=== PATIENT | male | born 1970 | race Caucasian/White ===

== ENCOUNTER 2020-10-27 12:26 | Emergency (ER) | payer OTHER, SELFPAY ==
--- NOTE | 2020-10-27 13:19 | ED.EAR ---
HPI - Ear Problem General Chief complaint: Ear Stated complaint: R EARACHE Source: patient and RN notes reviewed Limitations: no limitations History of Present Illness HPI Narrative: The obese patient, occasional drinker/non-smoker and prediabetic, presents with ear discomfort. Patient states he has about a day long history of right ear discomfort that is mild, worse with palpation. No discharge, tooth ache, mastoid tenderness fever, cough, loss of taste/smell, S OB, chest pain. Related Data Home Medications Medication Instructions Recorded Confirmed azelastine 1 spray INTRANASAL Q12H 08/19/19 10/27/20 sertraline 50 mg PO DAILY 10/27/20 10/27/20 Allergies Allergy/AdvReac Type Severity Reaction Status Date / Time No Known Allergies Allergy Verified 10/27/20 12:41 Review of Systems Review of Systems: Narrative: General/Constitutional: No weight loss,fever Eyes: N0: Redness,discharge Ears/Nose/Throat: No: Epistaxis,ear discharge Respiratory: Denies: Hemoptysis Gastrointestinal: No Vomiting, Bleeding-rectal Skin: No Lumps, eruption Neurologic: No Focal Weakness,Sz Hematologic: Denies: Petechiae/Purpura Psychiatric: No: Suicida ideationl All Other Systems: Reviewed and Negative [facility] Past Medical History Medical History (Updated 10/27/20 @ 13:25 by Kory Card MD) Attention deficit hyperactivity disorder Essential hypertension Mixed hyperlipidemia Obesity Prediabetes Family History Family History (Reviewed 10/15/20 @ 14:58 by Emma Spears [facility]) Grandparent Diabetes mellitus Other Family history of elevated blood lipids No family history of cardiovascular disease Social History Social History (Reviewed 10/15/20 @ 14:58 by Emma Spears [facility]) Smoking status: Never smoker Alcohol intake: current Comments At time of signature, agree with nursing past medical, surgical, social and family history. There is no relevant family history pertinent to the presenting complaint Exam Narrative: Exam Narrative: General Appearance: Well appearing, No distress EYE: PERRLA, Conjunctiva clear Ears: External ear normal, right EAC inflamed and narrowed with scant wax obscuring TM, left TM normal Nose: Normal nose Mouth/Throat: Normal appearing, Normal lips, Supple Respiratory: Airway patent, No respiratory distress Musculoskeletal: Full strength Skin: Warm, Dry Neurological: A&O x3, CN II-X intact Psychiatric: Normal mood, Normal affect Discharge Plan Discharge Clinical Impression: Otitis externa Qualifiers: Otitis externa type: unspecified type Chronicity: acute Laterality: right Qualified Code(s): H60.501 - Unspecified acute noninfective otitis externa, right ear Patient Disposition: Home, Self-Care Condition: Stable Instructions: Antibiotic Form, Otitis Externa (ED) Prescriptions: New ujvexgop-xwsbuivhg-OO 3.5-10,000-1 mg/mL-unit/mL-% solution 4 drp RIGHT EAR Q8H Qty: 10 RF: 0 amoxicillin 875 mg tablet 875 mg PO Q12H Qty: 14 RF: 0 No Action azelastine 137 mcg (0.1 %) Aerosol,[place] 1 spray INTRANASAL Q12H RF: 0 sertraline 50 mg tablet 50 mg PO DAILY RF: 0 atorvastatin 10 mg tablet See Rx Instructions .ROUTE .COMPLEX Qty: 90 RF: 0 lisinopril 10 mg tablet See Rx Instructions .ROUTE .COMPLEX Qty: 90 RF: 0 Follow-up/Referrals: UNKNOWN,DOCTOR [Primary Care Provider] -
== END 2020-10-27 13:35 | disposition home or self-care (01) ==
PROVIDERS: Emergency Provider Emergency Medicine
DX: H60.501 Unspecified acute noninfective otitis externa, right ear (principal); R73.03 Prediabetes; I10 Essential (primary) hypertension; E78.2 Mixed hyperlipidemia; E66.9 Obesity, unspecified; Z68.42 Body mass index [BMI] 45.0-49.9, adult
CPT/HCPCS: 99213; G0463

== ENCOUNTER 2020-11-03 14:19 | Emergency (ER) | payer OTHER, SELFPAY ==
--- NOTE | 2020-11-03 14:23 | ED.EAR ---
HPI - Ear Problem General Chief complaint: Ear Stated complaint: ear pressure Time Seen by Provider: 11/03/20 14:30 Source: patient Mode of arrival: ambulatory Limitations: no limitations History of Present Illness HPI Narrative: Santi Blankenship is a 50 yo male with a PMH of HTN, high cholesterol who coes meme to urgent care with pain and stating that he feels like he has a balloon in his ear. Pain at about 8 out of 10. States that he has taken the antibiotics as prescribed from the prior visit and his ear is feeling better but in the last 2 to 3 days it pain is gotten much worse. No fever, no nausea vomiting, no rhinorrhea Related Data Home Medications Medication Instructions Recorded Confirmed azelastine 1 spray INTRANASAL Q12H 08/19/19 10/27/20 sertraline 50 mg PO DAILY 10/27/20 10/27/20 Allergies Allergy/AdvReac Type Severity Reaction Status Date / Time No Known Allergies Allergy Verified 10/27/20 12:41 Review of Systems Review of Systems: Narrative: CONSTITUTIONAL: Denies fever, chills, sweats. EYES: Denies visual changes, redness, discharge. ENT: Denies rhinorrhea, congestion, sore throat, right otalgia. CARDIOVASCULAR: Denies chest pain, palpitations, edema. RESPIRATORY: Denies dyspnea, wheezing, cough GASTROINTESTINAL: Denies abdominal pain, nausea, vomiting, diarrhea. GENITOURINARY: Denies dysuria, hematuria, abnormal discharge SKIN: Denies rash or itching. NEUROLOGIC: Denies numbness, or focal weakness. PSYCHIATRIC: Denies anxiety or depression. PMFSH Past Medical History Medical History (Updated 11/03/20 @ 14:47 by Julieta Julian CNP) Attention deficit hyperactivity disorder Essential hypertension Mixed hyperlipidemia Obesity Prediabetes Family History Family History Grandparent Diabetes mellitus Other Family history of elevated blood lipids No family history of cardiovascular disease Social History Social History Smoking status: Never smoker Alcohol intake: current Comments At time of signature, I agree with nursing past medical, surgical, social and family history. There is no relevant family history pertinent to the presenting complaint. Exam Narrative: Exam Narrative: GENERAL: This is a well-nourished, well-developed patient, in moderate distress. HEAD: normocephalic, atraumatic. EYES: Sclera clear/white. Vision is grossly intact. EARS: External ears normal, auditory canals clear on L and erythem without drainage, swelling jhas decreased from prior visit; Thowever there is a wad of cotton lodged at the TM. Hearing grossly intact. NOSE: External nose normal without nasal discharge, nares without redness, no rhinorrhea. THROAT: Mucous membranes moist, NECK: Neck supple, CARDIOVASCULAR: Regular rate and rhythm without murmurs, gallops, or rubs. RESPIRATORY: Clear to auscultation. Breath sounds equal bilaterally. No wheezes, rales, or rhonchi. GASTROINTESTINAL: Abdomen soft, SKIN: warm, intact with no suspicious lesions or rash, good texture and turgor. NEURO: awake, alert, and oriented to person, place and time. There were no obvious focal neurologic abnormalities. Steady gait EXTREMITIES: Normal range of motion. BACK: Nontender without deformity Course Course Emergency Course: Patient is a 50-year-old male that was seen here on 328 and was given antibiotics and eardrops for a otitis externa; states his ear improved after couple days but in the last day or 2 is got much worse On exam there was cotton in his ear and patient states that he was trying to help clean his ear out Antibiotic changed to Cipro 500 twice daily and given Tylenol with codeine for pain as he has been using ibuprofen his blood pressure is quite high and he has a diagnosis of hypertension He is to follow-up with his primary care physician Vital Signs Vital signs: Vital Signs Temperature 96.
[2020-11-03 14:31] VITALS: BP 158/94; PULSE 65; RESP 16; TEMP 35.9; O2SAT 99
== END 2020-11-03 14:54 | disposition home or self-care (01) ==
PROVIDERS: Emergency Provider Nurse Practitioner; PCP Family Medicine
DX: H60.311 Diffuse otitis externa, right ear (principal); I10 Essential (primary) hypertension; E78.2 Mixed hyperlipidemia; R73.03 Prediabetes
CPT/HCPCS: 99213; G0463

== ENCOUNTER 2021-09-29 00:09 | Day surgery (SDC) | payer OTHER, SELFPAY ==
[2021-09-15 13:11] VITALS: BMI 42.7
[2021-09-29 08:23] VITALS: BP 153/92; PULSE 69; RESP 20; TEMP 36.1; O2SAT 97
[2021-09-29] MEDS: LACTATED RINGERS 1,000 ML 150 ML IV CONT (08:31)
--- NOTE | 2021-09-29 08:50 | WPDANESEPPF ---
Anes - Initial Pre Proc Eval Procedure: Operation Date: 09/29/21 09:30 Proposed Procedures p Screening Colonoscopy - Zen Peacock MD Date/Time: 09/29/21 08:50 Surgeon: Zen Peacock MD Pre Op Diagnosis: neoplasm screening Patient Data Age: 51 Gender: M Height: 1.75 m Weight: 136.3 kg Last Vital Signs Temp 97.0 F L 09/29/21 08:23 Pulse 69 09/29/21 08:23 Resp 20 09/29/21 08:23 BP 153/92 H 09/29/21 08:23 Pulse Ox 97 09/29/21 08:23 Allergies Allergy/AdvReac Type Severity Reaction Status Date / Time latex AdvReac Rash Verified 09/29/21 08:22 Home Medications Medication Instructions Recorded Confirmed Type azelastine 1 spray INTRANASAL Q12H 08/19/19 09/15/21 History hydrochlorothiazide 12.5 mg tablet See Rx Instructions .ROUTE 05/22/21 09/15/21 Rx .COMPLEX #90 tablet atorvastatin 10 mg tablet See Rx Instructions .ROUTE 05/26/21 09/15/21 Rx .COMPLEX #90 tablet lisinopril 30 mg tablet See Rx Instructions .ROUTE 06/16/21 09/15/21 Rx .COMPLEX #90 tablet sertraline 100 mg tablet 100 mg PO DAILY 08/18/21 09/15/21 History methylphenidate HCl 10 mg PO DAILY 09/15/21 09/15/21 History Patient hx anesthesia problems: none Family hx anesthesia problems: none Results Review: All pre-operative results and documents have been reviewed as part of the pre-operative evaluation. [facility] Past Medical History Medical History Attention deficit hyperactivity disorder Essential hypertension Mixed hyperlipidemia Obesity Prediabetes Family History Family History Grandparent Diabetes mellitus Other Family history of elevated blood lipids No family history of cardiovascular disease Social History Social History Smoking status: Never smoker Alcohol intake: current Drinks per week: 7 Living arrangements: with family Spiritual care concerns: No Anes - Eval Final PreProcedure Day of Procedure 09/29/21 08:50 Patient weight: morbidly obese Heart: regular rate and rhythm Lungs: clear to auscultation Airway: Mallampati scale class III Neurological: alert and oriented Last oral intake: >/= 8 hours ASA classification: III Emergent: no Anesthetic plan: proceed Anesthesia type and monitoring: general GIVS and standard monitoring Results Review: All pre-operative results and documents have been reviewed as part of the pre-operative evaluation. Informed Consent: The patient's anesthetic plan and its attendant risks and benefits were discussed with the patient/family/POA. Questions were solicited and answers provided to the satisfaction of the patient/family/POA.
--- NOTE | 2021-09-29 08:56 | PM.HPGS ---
History of Present Illness History of Present Illness Consent: Risks, benefits, and alternatives have been discussed and questions answered. Patient agrees to proceed with procedure. Chief complaint: neoplasm screening Narrative: Santi Blankenship is a 51 year old male here for first screening colonoscopy Review of Systems Constitutional: Constitutional: Denies headache(s) and Denies weakness Eyes: Eyes: Denies blurry vision ENT: Reports Normal hearing present, Denies headache(s) and Denies neck pain Cardiovascular: Cardiovascular: Denies chest pain and Denies dyspnea Respiratory: Respiratory: Denies dyspnea Gastrointestinal: Gastrointestinal: Reports no additional gastrointestinal complaints Genitourinary: Genitourinary: Denies dysuria Musculoskeletal: Musculoskeletal: Denies neck pain Integumentary/Breasts: Skin/Breast: Denies dry skin Neurologic: Reports Normal hearing present, Denies headache(s) and Denies weakness Psychiatric: Psychiatric: Denies anxiety Endocrine: Endocrine: Denies change in body appearance Hematologic/Lymphatic: Hematologic/Lymphatic: Denies easy bleeding Allergic/Immunologic: Allergic/Immunologic: Denies urticaria [facility] Past Medical History Medical History Attention deficit hyperactivity disorder Essential hypertension Mixed hyperlipidemia Obesity Prediabetes Family History Family History Grandparent Diabetes mellitus Other Family history of elevated blood lipids No family history of cardiovascular disease Social History Social History Smoking status: Never smoker Alcohol intake: current Drinks per week: 7 Living arrangements: with family Spiritual care concerns: No Meds Home Medications and Allergies Home Medications Medication Instructions Recorded Confirmed Type azelastine 1 spray INTRANASAL Q12H 08/19/19 09/15/21 History hydrochlorothiazide 12.5 mg tablet See Rx Instructions .ROUTE 05/22/21 09/15/21 Rx .COMPLEX #90 tablet atorvastatin 10 mg tablet See Rx Instructions .ROUTE 05/26/21 09/15/21 Rx .COMPLEX #90 tablet lisinopril 30 mg tablet See Rx Instructions .ROUTE 06/16/21 09/15/21 Rx .COMPLEX #90 tablet sertraline 100 mg tablet 100 mg PO DAILY 08/18/21 09/15/21 History methylphenidate HCl 10 mg PO DAILY 09/15/21 09/15/21 History Allergies Allergy/AdvReac Type Severity Reaction Status Date / Time latex AdvReac Rash Verified 09/29/21 08:22 Vital Signs Vital Signs - 24 hr 09/29/21 08:23 Temperature 97.0 F L Pulse Rate 69 Respiratory Rate 20 Blood Pressure 153/92 H Pulse Oximetry 97 Exam Const: General: comfortable and no acute distress HENMT: General nose exam: Normal nares present Eyes: General: appearance normal, both eyes and all related structures Neck: Neck: no JVD Resp: Auscultation: clear to auscultation bilaterally Cardio: Rate: regular rate Rhythm: regular rhythm GI: Inspection: non-distended GI Palp: Yes Soft to palpation Skin: General skin exam: normal color Neuro: General: gait normal Speech: normal speech Extrem: General: normal to inspection Psych: Mental Status: mental status grossly normal Assessment and Plan Assessment and plan (1) Screening for colon cancer: Code(s): Z12.11 - Encounter for screening for malignant neoplasm of colon Status: Acute Assessment and Plan: colonoscopy
[2021-09-29 09:20] VITALS: BP 132/83; PULSE 58; RESP 17; O2SAT 97
[2021-09-29 09:30] VITALS: BP 120/80; PULSE 62; RESP 21; O2SAT 100
[2021-09-29 09:40] VITALS: BP 160/108; PULSE 62; RESP 20; O2SAT 100
== END 2021-09-29 09:49 | disposition home or self-care (01) ==
PROVIDERS: PCP Family Medicine; Visit Provider Internal Medicine Gastroenterology
PROC: 0DJD8ZZ Inspection of Lower Intestinal Tract, Via Natural or Artificial Opening Endoscopic (ICD-10-PCS; CPT 45378; principal; 2021-09-29 09:30)
DX: Z12.11 Encounter for screening for malignant neoplasm of colon (principal); K63.5 Polyp of colon; K57.30 Diverticulosis of large intestine without perforation or abscess without bleeding; K64.8 Other hemorrhoids; D12.3 Benign neoplasm of transverse colon; F90.9 Attention-deficit hyperactivity disorder, unspecified type; I10 Essential (primary) hypertension; E78.2 Mixed hyperlipidemia; R73.03 Prediabetes; E66.01 Morbid (severe) obesity due to excess calories; Z68.41 Body mass index [BMI] 40.0-44.9, adult
CPT/HCPCS: 45385; 45380; 88305; J2704; J7120

== ENCOUNTER 2022-01-06 16:21 | Outpatient (CLI) | payer OTHER, SELFPAY ==
--- NOTE | ~2022-01-06 | XR_ITS ---
XR hip RT 2V w AP pelvis DATE: 01/06/2022 16:39 INDICATION: Right hip pain for one year. No known injury. TECHNIQUE: AP pelvis. AP and lateral views of right hip COMPARISON: None FINDINGS: The pubic symphysis and sacroiliac joints are intact. No pelvic fracture or bone destructio n. There is severe bilateral hip osteophytes, much more prominent on the right, with virtual obliteratio n of superior joint space, with very prominent particular spurring of acetabulum and femoral head, pa tchy sclerotic and cystic changes of the acetabulum and femoral head. There is suggestion of avascula r necrosis of the right femoral head. IMPRESSION: Severe bilateral hip osteophytes, much more pronounced on the right, with suggestion of a vascular necrosis of right femoral head Reviewed, dictated and finalized at location A. 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
== END 2022-01-06 16:22 | disposition home or self-care (01) ==
LOC: ANHIMG 16:25
PROVIDERS: PCP Family Medicine; Visit Provider Family Medicine
DX: M25.752 Osteophyte, left hip (principal); M25.751 Osteophyte, right hip
CPT/HCPCS: 73502

== ENCOUNTER → 2022-01-24 09:01 | Outpatient (CLI) | payer OTHER, SELFPAY ==
--- NOTE | ~2022-01-24 | MR_ITS ---
EXAMINATION: MR hip RT wo con DATE: 01/24/2022 10:26 INDICATION: Avascular necrosis of the right hip. Abnormal x-ray and right hip pain. TECHNIQUE: Magnetic resonance imaging (MRI) of the right hip was performed without intravenous contr ast. Sequences included full-field axial PD-weighted FS FSE and T1-weighted FSE, coronal of the pelvi s with PD-weighted FS FSE, T2-weighted FSE and T1-weighted FSE, small field of view of the right hip with axial PD-weighted FS FSE, sagittal PD-weighted FS FSE, coronal PD-weighted FS FSE and coronal T2 weighted FSE. Additional radial T1-weighted FGR oriented orthogonal to the acetabular rim were obt ained for evaluation of the labrum. COMPARISON: Radiograph dated FINDINGS: Bones/labrum/cartilage: Alignment is normal. No fracture or pathologic marrow replacing process. Advanced osteoarthritis of the right hip with subarticular cystic changes at the superior aspect of the right femoral head and a cetabulum. There are also prominent marginal osteophytes about both the right acetabulum and femoral head. This accounts for the next lytic and sclerotic appearance at the right femoral head which raise d the suspicion for avascular necrosis which is not identified left at either the left or right hip. Diffuse degenerative tearing of the right acetabular labrum. Similar but less advanced moderate to se rigoberto osteoarthritis and diffuse degenerative tearing of the left acetabular labrum identified at the left hip. Mild lower lumbar spondylosis. Fluid: Relatively likely reactive very small bilateral hip joint effusions. Soft tissues: No asymmetric muscular atrophy or abnormal muscle signal in the pelvis and visualized proximal thighs . The iliopsoas, gluteal and right proximal hamstring tendons are normal. Mild tendinopathy and very small partial tear at the left ischial tuberosity conjoined origin of the left biceps femoris and latha itendinosus tendon. Limited evaluation of visceral organs of the pelvis is unremarkable. No patholog ically enlarged pelvic/inguinal lymphadenopathy. IMPRESSION: 1. Advanced right and moderate to severe left hip osteoarthritis. Associated hypertrophic and subarti cular cystic changes at the right hip and acetabulum account for the appearance on the prior plain ra diographs with no evident avascular necrosis by MRI. 2. Mild tendinopathy and very small partial tear at the left ischial tuberosity origin of the conjoin ed left biceps femoris and semitendinosus tendons. Reviewed, dictated and finalized at location A. IMPRESSION: 1. Advanced right and moderate to severe left hip osteoarthritis. Associated hy pertrophic and subarticular cystic changes at the right hip and acetabulum acco unt for the appearance on the prior plain radiographs with no evident avascular necrosis by MRI. 2. Mild tendinopathy and very small partial tear at the left ischial tuberosity origin of the conjoined left biceps femoris and semitendinosus tendons.
== END ==
PROVIDERS: PCP Family Medicine; Visit Provider Family Medicine
DX: M87.851 Other osteonecrosis, right femur (principal); M16.0 Bilateral primary osteoarthritis of hip
CPT/HCPCS: 73721

== ENCOUNTER 2022-07-18 11:41 | Emergency (ER) | payer OTHER, SELFPAY ==
--- NOTE | 2022-07-18 11:53 | ED.URI ---
HPI - URI/Sore Throat General Chief Complaint: Upper Respiratory Infection Stated Complaint: FEVER/BODY ACHES Time Seen by Provider: 07/18/22 11:48 Source: patient and RN notes reviewed History of Present Illness HPI Narrative: Patient is a 51-year-old male who presents to urgent care with complaints of fevers at night, fatigue and body aches. Patient states he was tested in self for COVID twice which was negative. Patient states this started on Wednesday. Reports of an upper respiratory illness a couple weeks ago and those symptoms have resolved. Patient denies any shortness of breath, chest pain, cough. States that he has been trying to drink a lot of water and has recently noticed his urine has been dark and he has had urinary frequency. Patient denies any abdominal discomfort. Denies any nausea or vomiting. No other acute complaints. Patient is diaphoretic. No acute distress noted. Patient aware of the plan of care. Some parts of this dictation were generated by voice recognition software and may contain typographical and/or grammatical inaccuracies. Related Data Home Medications Medication Instructions Recorded Confirmed azelastine 137 mcg (0.1 %) nasal 1 spray intranasal Q12H 08/19/19 07/18/22 spray aerosol methylphenidate HCl 10 mg tablet 10 mg PO DAILY 09/15/21 07/18/22 sertraline 50 mg tablet 50 mg PO DAILY 07/14/22 07/18/22 Allergies Allergy/AdvReac Type Severity Reaction Status Date / Time latex AdvReac Rash Verified 07/18/22 11:49 Review of Systems Review of Systems: CONSTITUTIONAL: Reports of fever, chills, sweats EYES: Denies visual changes, redness, or discharge. ENT: Denies rhinorrhea, congestion, sore throat, or otalgia. CARDIOVASCULAR: Denies chest pain, palpitations, or edema. RESPIRATORY: Denies cough or dyspnea. GASTROINTESTINAL: Denies abdominal pain, nausea, vomiting, or diarrhea. GENITOURINARY: Denies dysuria or hematuria. Reports of dark urine and urinary frequency SKIN: Denies rash or itching. MUSCULOSKELETAL: Denies back pain, joint pain, or myalgia. NEUROLOGIC: Denies headache, numbness, or weakness. All other systems reviewed are negative, except as documented in HPI. [facility] Past Medical History Medical History (Updated 07/18/22 @ 12:24 by DEJAH Johnson) Attention deficit hyperactivity disorder Essential hypertension Mixed hyperlipidemia Obesity Prediabetes Family History Family History Grandparent Diabetes mellitus Other Family history of elevated blood lipids No family history of cardiovascular disease Social History Social History Smoking status: Never smoker Alcohol intake: current Drinks per week: 7 Lack of Transportation: No Lack of Food: Never True Current Housing: I Have Housing Concerned About Future Housing: No Difficulty Paying Gas/Electric Bills: No Difficulty Paying for Meds: No Currently Unemployed: No Education: Bachelor's Degree Difficulty w/ Childcare or Family Care: No Spiritual care concerns: No Comments At the time of my signature, I reviewed and agree with the nursing past medical, surgical, social, and family history. There is no relevant family history pertinent to the patient complaint. Exam Narrative: GENERAL: This is a well-nourished, well-developed patient, in no apparent distress. HEAD: normocephalic, atraumatic. EYES: PERRL. Sclera clear/white. Vision is grossly intact. EARS: External ears normal, auditory canals clear and without drainage, TMs normal without perforation. Hearing grossly intact. NOSE: External nose normal with no obvious nasal discharge, nares without redness, no rhinorrhea. THROAT: Mucous membranes moist, posterior pharynx clear. Moderate postnasal drainage NECK: Neck supple, non-tender without lymphadenopathy, masses or thyromegaly. CARDIOVASCULAR: Regular rate and rh
[2022-07-18 11:54] VITALS: BP 159/90; PULSE 76; RESP 16; TEMP 35.8; O2SAT 97
[2022-07-18 12:15] LABS: Glucose Point of Care 119 mg/dl (65-105)
--- NOTE | 2022-07-18 12:17 | ECG_ITS ---
Measurements Intervals [place] Rate: 76 P: 71 LA: 160 QRS: 50 QRSD: 96 T: 28 QT: 295 QTc: 333 Interpretive Statements SINUS RHYTHM NONSPECIFIC T-WAVE ABNORMALITY NO PREVIOUS ECG AVAILABLE FOR COMPARISON Electronically Signed On 07-18-2022 16:57:28 [employer] by Clarice Townsend M.D.
== END 2022-07-18 12:23 | disposition short-term general hospital (02) ==
PROVIDERS: Emergency Provider Nurse Practitioner Family; PCP Family Medicine
DX: R61 Generalized hyperhidrosis (principal); R31.9 Hematuria, unspecified; R50.9 Fever, unspecified; I10 Essential (primary) hypertension; E78.2 Mixed hyperlipidemia; R73.03 Prediabetes; E66.9 Obesity, unspecified; Z68.42 Body mass index [BMI] 45.0-49.9, adult; F90.9 Attention-deficit hyperactivity disorder, unspecified type
CPT/HCPCS: 81003; 82948; 93005; 99213; G0463

== ENCOUNTER 2022-07-18 12:45 | Emergency (ER) | payer OTHER, SELFPAY ==
--- NOTE | ~2022-07-18 | XR_ITS ---
EXAMINATION: XR chest 2V DATE: 07/18/2022 15:50 INDICATION: Fever, cough and diaphoresis TECHNIQUE: PA and lateral views of the chest were obtained. COMPARISON: CT abdomen pelvis dated 07/18/2022 FINDINGS: The lungs are clear with no focal airspace opacities, pulmonary edema, pleural effusion or pneumothor ax. The cardiomediastinal silhouette is normal. Old healed left clavicle fracture. There are bridging osteophytes at multiple levels in the spine, consistent with diffuse idiopathic skeletal hyperostosi s (DISH). IMPRESSION: 1. No acute cardiopulmonary disease. Reviewed, dictated and finalized at location A. ICE CASE MANAGER
--- NOTE | ~2022-07-18 | CT_ITS ---
EXAMINATION: CT abdomen pelvis wo con DATE: 07/18/2022 14:55 INDICATION: Right flank pain and hematuria TECHNIQUE: Computed tomography (CT) of the abdomen and pelvis was performed without intravenous contr ast. Automated exposure control and iterative reconstruction technique were employed. The dose-length product was 1218.60 mGy-cm. COMPARISON: None FINDINGS: Lung bases are clear. Heart size is normal. No pericardial or pleural effusion. Liver, gallbladder, p ancreas, spleen and bilateral adrenal glands are normal. Kidneys and ureters are normal with no uroli thiasis, hydroureteronephrosis or perinephric/ureteral stranding. Bowels including the appendix are n ormal. No free intraperitoneal gas or fluid. The lungs are clear. The cardiomediastinal silhouette i s within normal limits, accounting for portable AP technique. There are no large pleural effusions. There is no pneumothorax suspected. The bones and soft tissues are unremarkable. Advanced right and moderate to severe left hip osteoarthritis. IMPRESSION: 1. No urolithiasis. No acute intra-abdominal/pelvic process. Reviewed, dictated and finalized at location A. ECT ADMINISTRATOR
[2022-07-18 12:46] VITALS: BP 170/85; PULSE 86; RESP 18; TEMP 36.2; O2SAT 96
--- NOTE | 2022-07-18 14:41 | ED.GENADULT ---
HPI - General Adult General Chief complaint: Urogenital-Male Stated complaint: blood in urine Time Seen by Provider: 07/18/22 14:30 History of Present Illness HPI narrative: Patient is a 51 year old male here for evaluation of R flank pain x 3 days. Patient reports the pain is intermittent and stabbing in nature. Currently pain-free at time of my evaluation. Associated with diaphoresis and chills. Did not take his temperature. He does note that he had some episodes of urinary frequency. no history of kidney stones. He was sent here from urgent care for further evaluation and management. UA showed blood but no signs of infection. Related Data Home Medications Medication Instructions Recorded Confirmed azelastine 137 mcg (0.1 %) nasal 1 spray intranasal Q12H 08/19/19 07/18/22 spray aerosol methylphenidate HCl 10 mg tablet 10 mg PO DAILY 09/15/21 07/18/22 sertraline 50 mg tablet 50 mg PO DAILY 07/14/22 07/18/22 Allergies Allergy/AdvReac Type Severity Reaction Status Date / Time latex AdvReac Rash Verified 07/18/22 12:50 Review of Systems Review of Systems: Gen.: Reports chills. Eyes: Denies eye pain or visual change ENT: Denies congestion Respiratory: Denies shortness of breath or cough CV: Denies chest pain or palpitations GI: Denies abdominal pain nausea, emesis or diarrhea reports urinary frequency. Denies burning, urgency, hematuria Musculoskeletal: Reports right flank pain. Neuro: Denies numbness, tingling, weakness or focal weakness Skin: Denies rash Except as documented, all other systems reviewed and negative [facility] Past Medical History Medical History Attention deficit hyperactivity disorder Essential hypertension Mixed hyperlipidemia Obesity Prediabetes Family History Family History Grandparent Diabetes mellitus Other Family history of elevated blood lipids No family history of cardiovascular disease Social History Social History Smoking status: Never smoker Alcohol intake: current Drinks per week: 7 Lack of Transportation: No Lack of Food: Never True Current Housing: I Have Housing Concerned About Future Housing: No Difficulty Paying Gas/Electric Bills: No Difficulty Paying for Meds: No Currently Unemployed: No Education: Bachelor's Degree Difficulty w/ Childcare or Family Care: No Spiritual care concerns: No Exam Narrative: APPEARANCE: Well appearing, no pain in distress, well-nourished. Head: Normocephalic and atraumatic. EYES: PERRLA/EOMI, conjunctivae clear NOSE: No nasal drainage EARS: External ear normal in appearance THROAT: Oropharynx is clear. Mucous membranes are moist. NECK: Supple. No adenopathy, no masses. RESPIRATORY: Airway patent, respirations nonlabored. Clear to auscultation bilaterally, no rales, rhonchi, wheezing. CARDIOVASCULAR: Regular rate and rhythm without murmurs, rubs, or gallops. ABDOMINAL: Normoactive bowel sounds. Soft, nontender, nondistended. No rebound tenderness or guarding. MUSCULOSKELETAL: Extremities are warm and well-perfused. Moves all extremities well. No edema. NEURO: Normal speech. No focal neurologic deficits. SKIN: Skin is warm and dry. No rashes. PSYCHIATRIC: Normal affect/mood. Course Vital Signs Vital signs: Vital Signs Temperature 97.1 F L 07/18/22 12:46 Pulse Rate 86 07/18/22 12:46 Respiratory Rate 18 07/18/22 12:46 Blood Pressure 170/85 H 07/18/22 12:46 Pulse Oximetry 96 07/18/22 12:46 Oxygen Delivery Room Air 07/18/22 12:46 Temperature 97.1 F L 07/18/22 12:46 Pulse Rate 72 07/18/22 17:07 Respiratory Rate 16 07/18/22 17:07 Blood Pressure 132/96 H 07/18/22 17:07 Pulse Oximetry 97 07/18/22 17:07 Oxygen Delivery Room Air 07/18/22 12:46 Medical Decision Making MDM Narrativ
[2022-07-18 14:57] VITALS: BP 165/78; RESP 18; O2SAT 99
[2022-07-18 15:12] LABS: Basophils Absolute Auto 0.1 K/mm3 (0.0-0.1); Basophils Percent Auto 0.6 % (0.2-1.2); Eosinophils Absolute Auto 0.1 K/mm3 (0-0.3); Eosinophils Percent Auto 1.4 % (0-4.4); Hematocrit 44.6 % (42.0-52.0); Hemoglobin 15.2 g/dL (14.0-18.0); Immature Granulocyte Absolute 0.02 K/mm3 (0.00-0.031); Immature Granulocyte Percent A 0.3 % (0-0.5); Lymphocytes Absolute Auto 1.55 K/mm3 (0.9-3.2); Lymphocytes Percent Auto 19.6 % (18.3-44.2); Mean Corpuscular HGB Conc 34.1 g/dl (32-36); Mean Corpuscular Hemoglobin 31.5 pg (26-34); Mean Corpuscular Volume 92.5 fl (80-100); Mean Platelet Volume 9.9 fl (7.4-10.4); Monocytes Absolute Auto 0.8 K/mm3 (0.1-0.6); Monocytes Percent Auto 10.5 % (2.6-8.5); Neutrophils Absolute Auto 5.4 K/mm3 (1.3-6.7); Neutrophils Percent Auto 67.6 % (45.5-73.1); Platelet Count Result 302 k/mm3 (150-375); Red Blood Count 4.82 M/mm3 (4.6-6.20); Red Cell Distribution Width 12.6 % (11.5-14.5); White Blood Count 7.9 K/mm3 (4.5-10.0)
[2022-07-18 15:25] LABS: Alanine Aminotransferase 36 U/L (6-50); Albumin Level 4.3 g/dL (3.5-5.1); Alkaline Phosphatase 95 U/L (38-126); Anion Gap 5 mmol/L (8-16); Aspartate Amino Transferase 34 U/L (17-59); Bilirubin,Total 0.6 mg/dL (0.2-1.3); Blood Urea Nitrogen 24 mg/dL (9-20); Calcium 9.1 mg/dL (8.4-10.2); Carbon Dioxide 32 mmol/L (22-30); Chloride 99 mmol/L (98-107); Estimated CRCL calculation 88 ml/min; Estimated Glomerular Filt Rate > 60; Glucose 112 mg/dL (65-110); Sodium 136 mmol/L (137-145)
[2022-07-18 16:09] LABS: Troponin I < 0.012 ng/mL (0.000-0.034)
[2022-07-18] MEDS: SODIUM CHLORIDE 0.9% IV 1,000 ML 999 ML IV CONT (16:10)
[2022-07-18 16:31] LABS: Influenza A QL RT-PCR Negative (Negative); Influenza B QL RT-PCR Negative (Negative); SARS-CoV-2 RNA PCR Negative
[2022-07-18 17:07] VITALS: BP 132/96; PULSE 72; RESP 16; O2SAT 97
== END 2022-07-18 17:10 | disposition home or self-care (01) ==
PROVIDERS: Emergency Provider Physician Assistant; PCP Family Medicine
DX: R10.9 Unspecified abdominal pain (principal); R31.9 Hematuria, unspecified; Z20.822 Contact with and (suspected) exposure to COVID-19; I10 Essential (primary) hypertension; E78.2 Mixed hyperlipidemia; R73.03 Prediabetes; F90.9 Attention-deficit hyperactivity disorder, unspecified type; E66.9 Obesity, unspecified; Z68.42 Body mass index [BMI] 45.0-49.9, adult
CPT/HCPCS: 36415; 71046; 74176; 80053; 81003; 82948; 84484; 85025; 87636; 93005; 96360; 99284; J7030

== ENCOUNTER → 2022-08-19 10:48 | Outpatient (CLI) | payer OTHER, SELFPAY ==
--- NOTE | ~2022-08-19 | US_ITS ---
Renal-Bladder ultrasound Clinical History: Microscopic hematuria Technique: Real-time sonographic imaging of the kidneys and urinary bladder was performed. Findings: The right kidney measures 11.4 cm in length and the left kidney measures 11.7 cm. There is no hydronephrosis or renal calculus identified. Renal cortical echogenicity is within normal limits. No renal mass lesion is identified. The urinary bladder is moderately distended at the time of this exam. No intraluminal echoes are iden tified. No abnormal wall thickening is seen. Impression: Unremarkable ultrasound of the kidneys and urinary bladder. Reviewed, dictated and finalized at location M. MBLER TESTER Impression: Unremarkable ultrasound of the kidneys and urinary bladder.
== END ==
PROVIDERS: PCP Family Medicine; Visit Provider Urology
DX: R31.29 Other microscopic hematuria (principal)
CPT/HCPCS: 76775

== ENCOUNTER 2023-06-05 11:06 | Emergency (ER) | payer OTHER, SELFPAY ==
[2023-06-05 11:18] VITALS: BP 149/109; PULSE 72; RESP 16; TEMP 36.3; O2SAT 97
--- NOTE | 2023-06-05 11:19 | ED.URI ---
HPI - URI/Sore Throat General Chief Complaint: Upper Respiratory Infection Stated Complaint: CONGESTION/COUGH Source: patient and RN notes reviewed History of Present Illness HPI Narrative: 52 yo M presents to urgent care with complaints of congestion and ear fullness x 1 week. Pt states he feels the congestion going into his chest as well. States he has been trying multiple sinus rinses without relief. Denies any fevers, chills, chest pain, SOB, N/V/D. Related Data Home Medications Medication Instructions Recorded Confirmed azelastine 137 mcg (0.1 %) nasal 1 spray intranasal Q12H 08/19/19 02/09/23 spray aerosol methylphenidate HCl 10 mg tablet 10 mg PO DAILY 09/15/21 02/09/23 sertraline 50 mg tablet 50 mg PO DAILY 07/14/22 02/09/23 Allergies Allergy/AdvReac Type Severity Reaction Status Date / Time latex AdvReac Rash Verified 02/09/23 15:30 Review of Systems Review of Systems: Pertinent positives and pertinent negatives per HPI. [facility]LY [facility] Past Medical History Medical History (Updated 06/05/23 @ 11:29 by Inga Garsia APRN) Attention deficit hyperactivity disorder Essential hypertension Mixed hyperlipidemia Obesity Prediabetes Family History Family History Grandparent Diabetes mellitus Other Family history of elevated blood lipids No family history of cardiovascular disease Social History Social History Smoking status: Never smoker Alcohol intake: current Drinks per week: 7 Lack of Transportation: No Lack of Food: Never True Current Housing: I Have Housing Concerned About Future Housing: No Difficulty Paying Gas/Electric Bills: No Difficulty Paying for Meds: No Currently Unemployed: No Education: Bachelor's Degree Difficulty w/ Childcare or Family Care: No Living arrangements: with family Spiritual care concerns: No Comments At the time of my signature, I reviewed and agree with the nursing past medical, surgical, social, and family history. There is no relevant family history pertinent to the patient complaint. Exam Narrative: GENERAL: This is a well-nourished, well-developed patient, in no apparent distress. HEAD: normocephalic, atraumatic. EYES: Sclera clear/white. Vision is grossly intact. EARS: External ears normal, auditory canals clear and without drainage, TMs normal without perforation. Hearing grossly intact. NOSE: External nose normal with no obvious nasal discharge, + congestion THROAT: Mucous membranes moist, posterior pharynx clear. NECK: Neck supple, non-tender without lymphadenopathy, masses or thyromegaly. CARDIOVASCULAR: Regular rate and rhythm without murmurs, gallops, or rubs. RESPIRATORY: slight wheezes heard in the bilateral bases SKIN: warm, intact with no suspicious lesions or rash, good texture and turgor. NEURO: awake, alert, and oriented to person, place and time. There were no obvious focal neurologic abnormalities. Course Course Level of Care: Express Care Visit Vital Signs Vital signs: Vital Signs Temperature 97.4 F L 06/05/23 11:18 Pulse Rate 72 06/05/23 11:18 Respiratory Rate 16 06/05/23 11:18 Blood Pressure 149/109 H 06/05/23 11:18 Pulse Oximetry 97 06/05/23 11:18 Temperature 97.4 F L 06/05/23 11:18 Pulse Rate 72 06/05/23 11:18 Respiratory Rate 16 06/05/23 11:18 Blood Pressure 149/109 H 06/05/23 11:18 Pulse Oximetry 97 06/05/23 11:18 reviewed MDM - URI/Sore Throat MDM Narrative Medical decision making narrative: Go to the ER for any new or worsening symptoms. Avoid smoking/second-hand smoke. Continue to take Tylenol or Motrin for pain. Increase your Vitamin C intake. Use a humidifier or vaporizer at night. Take a probiotic daily while taking the antibiotic Take Medications as prescribed. Drink plenty of water. 8-10 glasses per day. Use flonase 2
== END 2023-06-05 11:33 | disposition home or self-care (01) ==
PROVIDERS: Emergency Provider Nurse Practitioner Family; PCP Family Medicine
DX: J40 Bronchitis, not specified as acute or chronic (principal); J32.9 Chronic sinusitis, unspecified; I10 Essential (primary) hypertension; E78.2 Mixed hyperlipidemia
CPT/HCPCS: 99213; G0463

== ENCOUNTER 2023-10-13 15:30 | Outpatient (RCR) | payer OTHER, SELFPAY ==
--- NOTE | 2023-09-30 17:01 | OPREHPOC ---
Outpatient Therapy Plan of Care This is a Multidisciplinary Plan of Care that may contain components documented by all disciplines (PT, OT, and ST.) PT Problem 1 PT Problem #1 Knowledge Deficit PT Goal 1 Goal Pt to be IND with issued HEP Target Visit 6 PT Problem 2 PT Problem #2 Pain PT Goal 1 Goal Pt to report pain no greater than 3/10 in the last week. Target Visit 6 PT Problem 3 PT Problem #3 Impaired Range of Motion PT Goal 1 Goal Pt to improve passive hip flexion to 110 deg jonathan Target Visit 6 PT Goal 2 Goal Pt to improve passive hip extension ROM to 0 deg jonathan Target Visit 6 PT Problem 4 PT Problem #4 Impaired Range of Motion PT Goal 1 Goal Pt to improve passive hip int rot to 0 deg jonathan Target Visit 6 PT Problem 5 PT Problem #5 Impaired Functional Mobil PT Goal 1 Goal Pt to demonstrate a functional squat to lift 20lb.
--- NOTE | 2023-09-30 17:01 | PTOPEVAL1 ---
Assessment and note entered by Lv Landon, PT, DPT Evaluation Information Assessment Status Evaluation Diagnosis jonathan hip pain Onset chronic Subjective Information Pt reports jonathan hip pain that has worsened significantly in the last 1-2 years. He states he now has debilitating pain with most activities of daily living and in weight bearing positions. Imaging shows bone on bone arthritis in both hips. Pt states he fell at work a couple of weeks ago, he was able to get up when holding onto something. He states his plan is to take the medication, work through the pain to loose weight, and to plan term get a hip replacement. He declines any pain at rest, but up to a 5/10 initially upon standing. Reported Pain Level Pain Score 0,0: Self Report Assessment PT Clinical Summary Santi presents to therapy today for his initial evaluation with a diagnosis of jonathan hip OA. Today he demonstrates significantly decreased passive hip ROM in all directions, jonathan. He ambulates with moderate deviations included an uncompensated Trendelenburg pattern, a narrow DELMA, and significant hip ext rot jonathan. He reports decreased functional mobility d/t hip pain. Skilled therapy services are indicated to address the deficits noted above, to manage pain, and to improve functional mobility. Plan of Care Interventions Electrical Stimulation,Gait Training,Hot Pack/Cold Pack,Manual Therapy,Neuro Re-education,Patient/ Caregiver Educati,Therapeutic Activities, Therapeutic Exercise PT Services Indicated Yes Treatment Frequency and 1x/wk for 6 visits Duration These treatments will address the objective and functional deficits as defined above. The patient will be advanced safely and appropriately in order for the patient to progress towards his/her prior level of function. Additional exercises will be introduced and as well as a comprehensive home exercise program upon discharge, if needed, ?to ensure carryover of functional gains achieved in the clinic. This treatment plan has been reviewed and agreement upon by the patient.
--- NOTE | 2023-10-21 13:25 | PCPTNOTE ---
Patient canceled this date due to provider being out with sick child.
--- NOTE | 2023-10-28 12:39 | PCPTNOTE ---
Patient called to cancel due to work.
--- NOTE | 2023-11-04 15:53 | PTOPDC ---
Assessment and note entered by Lv Landon, PT, DPT Evaluation Information Assessment Status Discharge - Pt Not Present Diagnosis jonathan hip pain Onset chronic Subjective Information Pt did not show up for scheduled appointment this date. Called and spoke with pt and he states he is doing well and does not need to continue with therapy at this time. Assessment PT Clinical Summary Santi completed 3 visits of skilled therapy to treat his hip pain. He will be discharged at this time per his request.
== END 2023-11-05 07:54 | disposition home or self-care (01) ==
LOC: ANHGOSHPT 15:30
PROVIDERS: PCP Family Medicine; Visit Provider Orthopaedic Surgery
DX: M25.551 Pain in right hip (principal); M25.552 Pain in left hip; M16.9 Osteoarthritis of hip, unspecified
CPT/HCPCS: 97110; 97112; 97161; 97530; 99199

== ENCOUNTER 2025-02-14 10:44 | Emergency (ER) | payer OTHER, SELFPAY ==
[2025-02-14 10:58] VITALS: BP 143/92; PULSE 84; RESP 16; TEMP 36.7; O2SAT 99
[2025-02-14 11:06] LABS: EDUAAPPEAR Cloudy; EDUABILI Negative (Negative); EDUABLOOD 3+ (Negative); EDUACOLOR1 Dark; EDUAGLUCOSE Negative (Negative); EDUAKETONE Negative (Negative); EDUALEUKO 1+ (Negative); EDUANITRATE Positive (Negative); EDUAPH 5.5; EDUAPROTEIN Negative (Negative); EDUASPGRAVITY 1.020; EDUAUROBILI 0.2
[2025-02-14] MEDS: cefTRIAXone 1 GM, LIDOCAINE 1% LOCAL INJ 2.1 ML IM (11:28)
--- NOTE | 2025-02-14 11:29 | ED.MALEGU ---
HPI - Male Genitourinary General Chief complaint: Urogenital-Male Stated complaint: UTI SYMPTOMS Time Seen by Provider: 02/14/25 11:05 Source: patient and RN notes reviewed Mode of arrival: ambulatory Limitations: no limitations History of Present Illness HPI Narrative: 54-year-old male presents Express Care complaining of urinary symptoms since yesterday. Patient reports dysuria, increased frequency, chills, and fatigue. Patient says he has a history of UTIs. He also says he has a history of chronic about hematuria and says they have not found any cause of his blood in his urine and they believe it is benign. Patient has a history of hypertension and hyperlipidemia. Patient is not taking it now with symptoms. Patient denies any abdominal pain, nausea, vomiting, diarrhea, chest pain, shortness of breath, headaches, fevers, or any other symptoms. Patient denies any penile discharge or any concerns for STDs. Related Data Home Medications ?Medication ?Instructions ?Recorded ?Confirmed ?Last Taken ?Type azelastine 137 mcg (0.1 %) nasal 1 spray intranasal Q12H 08/19/19 09/19/24 09/28/21 History spray sertraline 50 mg tablet 50 mg PO DAILY 07/14/22 09/19/24 Unknown History antiarthritic combination no.2 900 mg PO 09/21/23 09/19/24 Unknown History mg tablet (glucosamine-chondroitin) multivitamin 1 tablet PO DAILY 09/21/23 09/19/24 Unknown History Allergies Allergy/AdvReac Type Severity Reaction Status Date / Time latex AdvReac Rash Verified 02/14/25 10:58 Review of Systems Review of Systems: CONSTITUTIONAL: Denies fever, body aches, or sweats. Positive for chills and sweats. EYES: Denies visual changes, redness, or discharge. ENT: Denies rhinorrhea, congestion, sore throat, or otalgia. CARDIOVASCULAR: Denies chest pain, palpitations, dizziness, lightheadedness or edema. RESPIRATORY: Denies cough or dyspnea. GASTROINTESTINAL: Denies abdominal pain, nausea, vomiting, or diarrhea. GENITOURINARY: Positive for dysuria, increased frequency, hematuria. SKIN: Denies rash or itching. MUSCULOSKELETAL: Denies back pain, joint pain, or myalgia. NEUROLOGIC: Denies headache, numbness, or weakness. PSYCHIATRIC: Denies anxiety or depression. All other systems reviewed are negative, except as documented in HPI. [facility]LY [facility] Past Medical History Medical History Attention deficit hyperactivity disorder Essential hypertension Mixed hyperlipidemia Obesity Prediabetes Family History Family History Grandparent Diabetes mellitus Other Family history of elevated blood lipids No family history of cardiovascular disease Social History Social History Smoking status: Never smoker Alcohol intake: current Drinks per week: 7 Do You Feel Safe in your Home?: Yes Lack of Transportation: No Lack of Food: Never True Current Housing: I Have Housing Concerned About Future Housing: No Difficulty Paying Gas/Electric Bills: No Difficulty Paying for Meds: No Currently Unemployed: No Education: Bachelor's Degree Difficulty w/ Childcare or Family Care: No Living arrangements: with family 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 care concerns: No Comments At the time of my signature, I reviewed and agree with the nursing past medical, surgical, social, and family history. There is no relevant family history pertinent to the patient complaint. Exam Narrative: GENERAL: This is a well-nourished, well-developed adult, in no apparent distress. They are non ill-appearing, nontoxic appearing. Patient is diaphoretic. HEAD: normocephalic, atraumatic. EYES: Sclera clear/white. Vision is grossly intact. Conjunctiva normal bilaterally. Extraocular movements intact. EARS: External ears normal,Hearing grossly intact. NOSE: External nose normal THROAT: Mucous membranes moist NECK: Normal range of motion CARDIOVASCULAR: Regular rate and rhythm. Normal S1-S2. No clicks, gallops, rubs, murmurs. RESPIRATORY: Respiratory rate normal, respiratory effort nonlabored, no respiratory distress. Lung sounds clear to auscultation throughout. Lung sounds equal bilaterally. No adventitious lung sounds. GASTROINTESTINAL: Abdomen soft, flat, non-tender, nondistended. Bowel sounds are active. No hepato-splenomegaly, or palpable masses. No guarding or rigidity. No rebound tenderness. SKIN: warm, Dry, intact with no suspicious lesions or rash, good texture and turgor. NEURO: awake, alert, and oriented to person, place and time. There were no obvious focal neurologic abnormalities. EXTREMITIES: No joint tenderness, effusion, or edema noted. BACK: Nontender without deformity. No CVA tenderness. Course Course Emergency Course: Portions of this record may have been created with voice recognition software Level of Care: Express Care Visit Vital Signs Vital signs: Vital Signs Temperature 98.1 F 02/14/25 10:58 Pulse Rate 84 02/14/25 10:58 Respiratory Rate 16 02/14/25 10:58 Blood Pressure 143/92 H 02/14/25 10:58 Pulse Oximetry 99 02/14/25 10:58 Temperature 98.1 F 02/14/25 10:58 Pulse Rate 84 02/14/25 10:58 Respiratory Rate 16 02/14/25 10:58 Blood Pressure 143/92 H 02/14/25 10:58 Pulse Oximetry 99 02/14/25 10:58 MDM - Male Genitourinary MDM Narrative Medical decision making narrative: Urine dipstick shows evidence urinary tract infection. A urine cultures pending. Patient given a shot of ceftriaxone. Will send patient home on cefuroxime. Discussed physical exam findings. Advised supportive measures and signs/symptoms to go to the ER. Pt is appropriate for outpt treatment and f/u. Differential Diagnosis Differential diagnosis: Likely urinary tract infection, urethritis, prostatitis and other (STD) Lab Data Attestation: I reviewed the patient's lab results. Labs: Lab Results 02/14/25 Range/Units 11:05 POC Urine Color Dark POC Urine Clarity Cloudy POC Urine pH 5.5 POC Ur Specif [place] 1.020 POC Urine Protein Negative (Negative) POC Ur Glucose (UA) Negative (Negative) POC Urine Ketones Negative (Negative) POC Urine Blood 3+ (Negative) POC Urine Nitrite Positive (Negative) POC Urine Bilirubin Negative (Negative) POC Urine Urobilinogen 0.2 POC U Leukocyte Esteras 1+ (Negative) Discharge Plan Discharge Clinical Impression: Urinary tract infection Qualifiers: Urinary tract infection type: site unspecified Hematuria presence: with hematuria Qualified Code(s): N39.0 - Urinary tract infection, site not specified Patient Disposition: Home Condition: Stable Instructions: Antibiotic Form, Urinary Tract Infection in Men (ED) Additional Instructions: Your given shot of ceftriaxone today. Take the cefuroxime as prescribed The urine will be sent of for a culture to identify what type of bacteria is causing your infection. If the culture shows that the antibiotic will not get rid of your infection, you will be notified and a new antibiotic will be called in for you. Increase water intake you will need to follow up with your PCP 3-5 days. Go to the ER for any worsening symptoms, abdominal pain, fevers, nausea, vomiting, or any other concerns Patient Language: Chinese Prescriptions: New cefuroxime axetil 500 mg tablet 500 mg PO BID 7 Days Qty: 14 0RF No Action azelastine 137 mcg (0.1 %) Aerosol,[place] 1 spray INTRANASAL Q12H multivitamin Tablet 1 tablet PO DAILY glucosamine-chondroitin 900 mg tablet PO sertraline 50 mg tablet 50 mg PO DAILY hydrochlorothiazide 12.5 mg tablet 12.5 mg PO DAILY Qty: 90 1RF simvastatin 10 mg tablet See Rx Instructions .ROUTE .COMPLEX Qty: 90 1RF Dose Instruction: Take 1 tablet by mouth once daily Rx Instructions: Take 1 tablet by mouth once daily lisinopril 40 mg tablet 40 mg PO DAILY Qty: 90 1RF naproxen 500 mg tablet See Rx Instructions .ROUTE .COMPLEX Qty: 180 0RF Dose Instruction: Take 1 tablet by mouth twice daily as needed for pain Rx Instructions: Take 1 tablet by mouth twice daily as needed for pain Follow-up/Referrals: Za Ortiz DO [Primary Care Provider] - Time of Disposition: 11:18
== END 2025-02-14 11:55 | disposition home or self-care (01) ==
PROVIDERS: PCP Family Medicine
DX: N39.0 Urinary tract infection, site not specified (principal); I10 Essential (primary) hypertension; E78.2 Mixed hyperlipidemia; R73.03 Prediabetes; E66.9 Obesity, unspecified; Z68.41 Body mass index [BMI] 40.0-44.9, adult
CPT/HCPCS: 81003; 87086; 96372; 99213; G0463; J0696; J2003

== ENCOUNTER 2025-07-16 08:53 | Day surgery (SDC) | payer OTHER, SELFPAY ==
[2025-06-26 13:46] VITALS: BMI 44.3
[2025-07-16 09:10] VITALS: BP 113/89; PULSE 82; RESP 18; TEMP 36.1; O2SAT 98; BMI 45.7
[2025-07-16] MEDS: LACTATED RINGERS 1,000 ML 150 ML IV CONT (09:17)
--- NOTE | 2025-07-16 09:58 | P.PNAN_ITS ---
Anes - Initial Pre Proc Eval Procedure: Operation Date: 07/16/25 10:30 Proposed Procedures p Screening Colonoscopy - Zen Peacock MD Date/Time: 07/16/25 09:58 Surgeon: Zen Peacock MD Pre Op Diagnosis: screening,hx of colon polyps Patient Data Age: 54 Gender: M Height: 1.75 m Weight: 140.5 kg Last Vital Signs Temp 97 F L 07/16/25 09:10 Pulse 82 07/16/25 09:10 Resp 18 07/16/25 09:10 BP 113/89 07/16/25 09:10 Pulse Ox 98 07/16/25 09:10 O2 Del Method Room Air 07/16/25 09:10 Allergies Allergy/AdvReac Type Severity Reaction Status Date / Time latex AdvReac Rash Verified 07/16/25 09:09 Home Medications ?Medication ?Instructions ?Recorded ?Confirmed ?Type azelastine 137 mcg (0.1 %) nasal 1 spray intranasal Q1 2H 08/19/19 07/16/25 History spray sertraline 50 mg tablet 50 mg PO DAILY 07/14/2207/02 History antiarthritic combination no.2 900 900 mg PO DAILY 07/16/25 History mg tablet (glucosamine-chondroitin) multivitamin 1 tablet PO DAILY 09/21/23 1 09/16/24 History cefuroxime axetil 500 mg tablet 500 mg PO BID 7 days # 14 tabs 02/14/25 07/16/25 Rx hydrochlorothiazide 12.5 mg tablet 12.5 mg PO DAILY #9 0 tabs 03/01/25 07/16/25 Rx amlodipine 2.5 mg tablet 2.5 mg PO DAILY #90 tabs 12/2407/16/25 Rx simvastatin 10 mg tablet See Rx Instructions .Route 0 04/20/25 07/16/25 Rx .COMPLEX #90 tabs lisinopril 40 mg tablet 40 mg PO DAILY #90 tabs 09/2607/16/25 Rx Patient hx anesthesia problems: none Family hx anesthesia problems: none Results Review: All pre-operative results and documents have been reviewed as part of the pre- operative evaluation. [facility] Past Medical History Medical History Attention deficit hyperactivity disorder Essential hypertension Mixed hyperlipidemia Obesity Prediabetes Family History Family History Grandparent Diabetes mellitus Other Family history of elevated blood lipids No family history of cardiovascular disease Social History Social History Smoking status: Never smoker Alcohol intake: current Drinks per week: 7 Lack of Transportation: No Lack of Food: Never True Current Housing: I Have Housing Concerned About Future Housing: No Difficulty Paying Gas/Electric Bills: No Difficulty Paying for Meds: No Currently Unemployed: No Education: Bachelor's Degree Difficulty w/ Childcare or Family Care: No Living arrangements: with family 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 care concerns: No Anes - Eval Final PreProcedure Day of Procedure 07/16/25 09:58 Patient weight: morbidly obese Lungs: normal air movement Airway: Mallampati scale class II and special considerations (Missing bottom R tooth. ) Neurological: alert and oriented Last oral intake: >/= 8 hours ASA classification: III Emergent: no Anesthetic plan: proceed Anesthesia type and monitoring: general GIVS and standard monitoring Results Review: All pre-operative results and documents have been reviewed as part of the pre- operative evaluation. HTN, hyperlipidemia, BMI 45, more active now after hip replacement summer 2024, no cp or sob w walking 1-2 fos. Informed Consent: The patient's anesthetic plan and its attendant risks and benefits were discussed with the patient/family/POA. Questions were solicited and answers provided to the satisfaction of the patient/family/POA.
--- NOTE | 2025-07-16 10:01 | PM.HPGS ---
History of Present Illness History of Present Illness Consent: Risks, benefits, and alternatives have been discussed and questions answered. Patient agrees to proceed with procedure. Chief complaint: screening,hx of colon polyps Narrative: Santi Blankenship is a 54 year old male with colon polyp in 2021 Review of Systems Review of Systems: All systems reviewed & are unremarkable except as noted in HPI and below PMFSH Past Medical History Medical History (Updated 07/16/25 @ 10:02 by Zen Peacock MD) Colon polyp Attention deficit hyperactivity disorder Essential hypertension Mixed hyperlipidemia Obesity Prediabetes Family History Family History Grandparent Diabetes mellitus Other Family history of elevated blood lipids No family history of cardiovascular disease Social History Social History Smoking status: Never smoker Alcohol intake: current Drinks per week: 7 Lack of Transportation: No Lack of Food: Never True Current Housing: I Have Housing Concerned About Future Housing: No Difficulty Paying Gas/Electric Bills: No Difficulty Paying for Meds: No Currently Unemployed: No Education: Bachelor's Degree Difficulty w/ Childcare or Family Care: No Living arrangements: with family 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 care concerns: No Meds Home Medications and Allergies Home Medications ?Medication ?Instructions ?Recorded ?Confirmed ?Type azelastine 137 mcg (0.1 %) nasal 1 spray intranasal Q12H 08/19/19 07/16/25 History spray sertraline 50 mg tablet 50 mg PO DAILY 07/14/22 07/16/25 History antiarthritic combination no.2 900 900 mg PO DAILY 09/21/23 07/16/25 History mg tablet (glucosamine-chondroitin) multivitamin 1 tablet PO DAILY 09/21/23 07/16/25 History cefuroxime axetil 500 mg tablet 500 mg PO BID 7 days #14 tabs 02/14/25 07/16/25 Rx hydrochlorothiazide 12.5 mg tablet 12.5 mg PO DAILY #90 tabs 03/01/25 07/16/25 Rx amlodipine 2.5 mg tablet 2.5 mg PO DAILY #90 tabs 04/06/25 07/16/25 Rx simvastatin 10 mg tablet See Rx Instructions .Route 04/20/25 07/16/25 Rx .COMPLEX #90 tabs lisinopril 40 mg tablet 40 mg PO DAILY #90 tabs 07/03/25 07/16/25 Rx Allergies Allergy/AdvReac Type Severity Reaction Status Date / Time latex AdvReac Rash Verified 07/16/25 09:09 Vital Signs Vital Signs - 24 hr 07/16/25 09:10 Temperature 97 F L Pulse Rate 82 Respiratory Rate 18 Blood Pressure 113/89 Pulse Oximetry 98 Oxygen Delivery Room Air Exam Const: General: comfortable and no acute distress HENMT: Face/Nose/Sinus: Normal nares present Eyes: General: appearance normal, both eyes and all related structures Neck: Neck: no JVD Resp: Auscultation: clear to auscultation bilaterally Cardio: Rate: regular rate Rhythm: regular rhythm GI: Inspection: non-distended GI Palp: Yes Soft to palpation Skin: General skin exam: normal color Extrem: General: normal to inspection Psych: Mental Status: mental status grossly normal Assessment and Plan Assessment and plan (1) Colon polyp: Code(s): K63.5 - Polyp of colon Status: Acute Assessment and Plan: colonoscopy
--- NOTE | 2025-07-16 10:24 | S_PTH ---
PATIENT: Santi Blankenship LOC: [facility] Au#:[id number] AGE/SX: 54/M ROOM: RE07/16/[address]: Zen Peacock MD : 1970 BED: DIS: 07/16/2025 SPEC #: [id number] RECD: 07/16/25 11:55 STATUS: TINO REQ #: [id number] JUDITH: 07/16/25 10:[address]: Zen Peacock DEPT: [facility] Surgical RECD BY: Genevieve Saenz ENTERED: 07/16/25 11:56 SP TYPE: Surgical OTHR DR: Za Ortiz DO Tissues: A - Colon Polypectomy B - Colon Polypectomy Procedures: Hematoxylin and Eosin Stain Gross and Microscopic Level 4
[2025-07-16 10:26] VITALS: BP 154/97; PULSE 72; RESP 20; O2SAT 95
[2025-07-16 10:36] VITALS: BP 135/88; PULSE 68; RESP 19; O2SAT 98
[2025-07-16 10:46] VITALS: BP 149/89; PULSE 65; RESP 20; O2SAT 98
== END 2025-07-16 10:54 | disposition home or self-care (01) ==
PROVIDERS: PCP Family Medicine; Visit Provider Internal Medicine Gastroenterology
PROC: 0DJD8ZZ Inspection of Lower Intestinal Tract, Via Natural or Artificial Opening Endoscopic (ICD-10-PCS; CPT 45378; principal; 2025-07-16 10:30)
DX: Z12.11 Encounter for screening for malignant neoplasm of colon (principal); D12.3 Benign neoplasm of transverse colon; D12.4 Benign neoplasm of descending colon; K63.5 Polyp of colon; K64.8 Other hemorrhoids; K57.30 Diverticulosis of large intestine without perforation or abscess without bleeding; I10 Essential (primary) hypertension; E78.2 Mixed hyperlipidemia; R73.03 Prediabetes; F90.9 Attention-deficit hyperactivity disorder, unspecified type; E66.01 Morbid (severe) obesity due to excess calories; Z68.42 Body mass index [BMI] 45.0-49.9, adult
CPT/HCPCS: 45385; 88305; J7120